=== PATIENT | male | born 2005 | race Caucasian/White ===

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

== ENCOUNTER 2025-02-11 23:01 | Emergency (ER) | payer OTHER, BC, SELFPAY ==
[2025-02-11 23:21] VITALS: BP 136/59; PULSE 49; RESP 16; TEMP 36.8; O2SAT 99
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
[2025-02-12] MEDS: LIDOCAINE 1% W/EPI 10ML 20 ML INJ (00:31)
[2025-02-12] MEDS: BACITRACIN OINT 0.9 GM PCKT 1 APPLIC TOP (00:57)
[2025-02-12 01:15] VITALS: BP 130/61; PULSE 50; RESP 16; O2SAT 97
== END 2025-02-12 01:17 | disposition home or self-care (01) ==
PROVIDERS: Emergency Provider Family Medicine; PCP Family Medicine
DX: S81.012A Laceration without foreign body, left knee, initial encounter (principal); V00.831A Fall from motorized mobility scooter, initial encounter
CPT/HCPCS: 12001; 99282; 99283